=== PATIENT | male | born 1935 | race Hispanic/Latino ===

== ENCOUNTER → 2017-10-02 | Outpatient (CLI) | payer MEDICARE ==
[~2017-10-02] VITALS: Ht 167.6 cm; Wt 60.6 kg
[~2017-10-02] MED LIST: AMLO1CAP11 PO; ASPI-555 PO; ATOR40TA71 PO; CEFUROXIME SODIUM 1.5 GM VIAL IVP ONE; METF10004 PO; METO25TA6 PO; TAMS0.4C32 PO
[2017-10-02 11:50] VITALS: BP 148/64
[2017-10-02 11:55] LABS: BASOPHILS % (AUTO) 1.4 % (0.0-5.0); EOSINOPHILS % (AUTO) 11.9 % (0.0-8.0); HEMATOCRIT 32.5 % (42-54); LYMPHOCYTES % (AUTO) 21.1 % (21.0-51.0); MEAN CORPUSCULAR HEMOGLOBIN 29.6 pg (27.0-33.0); MEAN CORPUSCULAR HGB CONC 34.9 g/dL (32.0-36.0); MEAN CORPUSCULAR VOLUME 84.9 fL (79-99); MONOCYTES % (AUTO) 9.2 % (3.0-13.0); NEUTROPHILS % (AUTO) 56.4 % (40.0-77.0); PLATELET COUNT (AUTO) 145 K/uL (130-400); RED BLOOD CELL COUNT(AUTO) 3.83 MIL/uL (4.50-6.20); RED CELL DISTRIBUTION WIDTH 14.7 % (11.0-15.5); WHITE BLOOD COUNT (AUTO) 7.6 K/uL (4.8-10.8)
[2017-10-02 12:00] LABS: HEMOGLOBIN A1C 5.5 % (4.0-6.0)
[2017-10-02 12:10] LABS: ALBUMIN 3.9 g/dL (3.5-5.0); BILIRUBIN,TOTAL 0.7 mg/dL (0.2-1.0); CREATININE 1.3 mg/dL (0.5-1.5); POTASSIUM 5.1 mmol/L (3.5-5.1); TOTAL PROTEIN, SERUM 7.9 g/dL (6.0-8.3)
[2017-10-02 12:12] LABS: INR 0.98 (0.85-1.15); PARTIAL THROMBOPLASTIN TIME 26.6 SEC (26.3-35.5); PROTHROMBIN TIME 10.3 SEC (9.6-11.6)
== END | disposition home or self-care (01) ==
LOC: DAH 10:00 → EDSEX 11:45 → EDSTATUS 11:45
PROVIDERS: ATTEND Thoracic Surgery (Cardiothoracic Vascular Surgery)
DX: Z01.818 Encounter for other preprocedural examination (principal); I35.0 Nonrheumatic aortic (valve) stenosis
CPT/HCPCS: 36415; 71046; 80053; 83036; 85025; 85610; 85730; 86850; 86900; 86901; 86922; 93005; 94010

== ENCOUNTER 2017-10-15 11:45 | Inpatient (IN) | payer MEDICARE ==
[~2017-10-15] VITALS: Ht 167.6 cm; Wt 70.3 kg
[~2017-10-15 11:45] MED LIST changes: -CEFUROXIME SODIUM 1.5 GM VIAL IVP ONE
[2017-10-15 15:35] VITALS: BP 183/56
[2017-10-15 15:35] LABS: BASOPHILS % (AUTO) 0.8 % (0.0-5.0); EOSINOPHILS % (AUTO) 12.8 % (0.0-8.0); LYMPHOCYTES % (AUTO) 20.1 % (21.0-51.0); MEAN CORPUSCULAR HEMOGLOBIN 29.9 pg (27.0-33.0); MEAN CORPUSCULAR HGB CONC 34.8 g/dL (32.0-36.0); MEAN CORPUSCULAR VOLUME 85.8 fL (79-99); NEUTROPHILS % (AUTO) 58.3 % (40.0-77.0); PLATELET COUNT (AUTO) 143 K/uL (130-400); RED BLOOD CELL COUNT(AUTO) 3.61 MIL/uL (4.50-6.20); RED CELL DISTRIBUTION WIDTH 14.5 % (11.0-15.5); WHITE BLOOD COUNT (AUTO) 9.1 K/uL (4.8-10.8)
[2017-10-15 15:45] LABS: INR 0.96 (0.85-1.15); PARTIAL THROMBOPLASTIN TIME 26.6 SEC (26.3-35.5); PROTHROMBIN TIME 10.1 SEC (9.6-11.6)
[2017-10-15 15:49] LABS: ALBUMIN 3.9 g/dL (3.5-5.0); BILIRUBIN,TOTAL 0.6 mg/dL (0.2-1.0); CREATININE 1.5 mg/dL (0.5-1.5); TOTAL PROTEIN, SERUM 7.9 g/dL (6.0-8.3)
[2017-10-15 15:50] LABS: HEMOGLOBIN A1C 5.8 % (4.0-6.0)
[2017-10-16] MEDS ORDERED: CEFUROXIME SODIUM 1.5 GM VIAL IVP SCH (07:00)
[2017-10-16 12:50] VITALS: BP 171/61
[2017-10-16] MEDS ORDERED: SODIUM CHLORIDE 0.9% 1000ML 1,000 ML IV ONE (12:52)
[2017-10-16 17:50] VITALS: BP 158/56
[2017-10-16 19:13] VITALS: BP 135/53
[2017-10-16 23:48] VITALS: BP 167/56
[2017-10-17] VITALS (16 sets, daily range): BP systolic 115–168; BP diastolic 29–158
[2017-10-17 04:47] LABS: CREATININE 1.2 mg/dL (0.5-1.5); HEMATOCRIT 30.7 % (42-54); MEAN CORPUSCULAR HEMOGLOBIN 29.6 pg (27.0-33.0); MEAN CORPUSCULAR VOLUME 84.5 fL (79-99); PLATELET COUNT (AUTO) 144 K/uL (130-400); POTASSIUM 4.2 mmol/L (3.5-5.1); RED BLOOD CELL COUNT(AUTO) 3.63 MIL/uL (4.50-6.20); RED CELL DISTRIBUTION WIDTH 14.3 % (11.0-15.5); WHITE BLOOD COUNT (AUTO) 7.9 K/uL (4.8-10.8)
[2017-10-17] MEDS ORDERED: SODIUM CHLORIDE 0.9% 1000ML 1,000 ML IV ONE ×2 (06:51→10:17)
[2017-10-17] MEDS: CEFUROXIME SODIUM 1.5 GM VIAL IVP SCH ×3 (06:55→18:34)
[2017-10-17] MEDS ORDERED: BACITRACIN 50,000 UNIT VIAL ONE (07:13)
[2017-10-17] MEDS ORDERED: ROCURONIUM BROMIDE 10MG/1ML 5ML VL ONE ×2 (07:25→07:50)
[2017-10-17] MEDS ORDERED: NITROGLYCERIN 50 MG/D5% WATER 1 BOT ONE (07:26)
[2017-10-17] MEDS ORDERED: DELNIDO FORMULA 2 BAG IV ONE (07:30)
[2017-10-17] MEDS ORDERED: THROMBIN-JMI 5000 UNIT/VIAL TP ONE (07:30)
[2017-10-17] MEDS ORDERED: NOREPINEPHRINE BITARTRATE 1 MG/1 ML ML IV ONE ×3 (07:36→10:32)
[2017-10-17] MEDS ORDERED: MILRINONE-D5W 20 MG/100 ML 0 ML IV ONE (08:08)
[2017-10-17] MEDS ORDERED: HEPARIN SODIUM 1000UNIT/ML 10ML VIAL ONE (08:08)
[2017-10-17] MEDS ORDERED: NEOSTIGMINE 5MG/5ML SYR IV ONE (08:08)
[2017-10-17] MEDS ORDERED: EPINEPHRINE 1 MG/ML AMPULE ONE (08:08)
[2017-10-17] MEDS ORDERED: LIDOCAINE PF 2% 5ML ABBOJECT ONE (08:08)
[2017-10-17] MEDS ORDERED: PROTAMINE SULFATE 10 MG/ML 25ML VIAL IV ONE (08:08)
[2017-10-17] MEDS ORDERED: AMINOCAPROIC ACID 250 MG/ML 20 ML VIAL IV ONE ×2 (08:08→12:00)
[2017-10-17] MEDS ORDERED: GLYCOPYRROLATE 0.2 MG/ML 5 ML VIAL ONE (08:08)
[2017-10-17] MEDS ORDERED: ESMOLOL HCL 10 MG/ML 10 ML VIAL ONE (08:08)
[2017-10-17] MEDS ORDERED: AMIODARONE HCL 900MG/18ML IV ONE (08:08)
[2017-10-17] MEDS ORDERED: MIDAZOLAM HCL 1 MG/ML 5ML VIAL ONE (08:09)
[2017-10-17] MEDS ORDERED: PROPOFOL 10 MG/ML 20ML VIAL IV ONE (08:09)
[2017-10-17 08:29] LABS: ABG BASE EXCESS -3.7 mmol/L (-2.0-3.0); ABG HCO3 20.1 mmol/L (21.0-28.0); ABG OXYGEN SATURATION 99.1 % (95.0-99.0); ABG PCO2 32 mmHg (35-48)
[2017-10-17] MEDS ORDERED: FAMOTIDINE/PF 20 MG/2 ML VIAL IV SCH (09:00)
[2017-10-17] MEDS ORDERED: FENTANYL CITRATE PF 50 MCG/1 ML 5ML AMP IV ONE ×2 (09:26)
[2017-10-17 10:15] LABS: ABG HCO3 15.2 mmol/L (21.0-28.0); ABG OXYGEN SATURATION 98.8 % (95.0-99.0); ABG PCO2 35 mmHg (35-48)
[2017-10-17 10:41] LABS: ABG BASE EXCESS -3.1 mmol/L (-2.0-3.0); ABG HCO3 21.8 mmol/L (21.0-28.0); ABG OXYGEN SATURATION 98.3 % (95.0-99.0); ABG PCO2 38 mmHg (35-48)
[2017-10-17 11:06] LABS: ABG BASE EXCESS -3.9 mmol/L (-2.0-3.0); ABG HCO3 21.2 mmol/L (21.0-28.0); ABG OXYGEN SATURATION 98.3 % (95.0-99.0); ABG PCO2 38 mmHg (35-48)
[2017-10-17] MEDS ORDERED: SODIUM BICARB 50MEQ 50ML VIAL ONE ×3 (11:07→16:50)
[2017-10-17] MEDS ORDERED: SODIUM CHLORIDE 0.9% 500ML 500 ML IV SCH (11:28)
[2017-10-17] MEDS ORDERED: INSULIN REGULAR, HUMAN 3ML 100 UNIT in SODIUM CHLORIDE 0.9% 99 ML IV SCH ×2 (11:30)
[2017-10-17] MEDS ORDERED: SODIUM CHLORIDE 0.9% 250 ML IV PRN (11:30)
[2017-10-17] MEDS ORDERED: SODIUM BICARB 8.4% 50ML SYRINGE IV PRN (11:30)
[2017-10-17] MEDS ORDERED: AMINOCAPROIC ACID 15,000 MG in SODIUM CHLORIDE 0.9% 250 ML IV SCH (11:30)
[2017-10-17] MEDS ORDERED: NICARDIPINE HCL 100 MG in SODIUM CHLORIDE 0.9% 100 ML IV PRN (11:30)
[2017-10-17] MEDS ORDERED: POTASSIUM PHOS 15 mMOL+NS250ML 250 ML IV PRN (11:30)
[2017-10-17] MEDS ORDERED: HYDROCODONE/ACETAMINOPHEN 5/325 MG TAB PO PRN ×2 (11:30)
[2017-10-17] MEDS ORDERED: DEXTROSE 50%-WATER 50 ML DISP.SYRIN IV PRN (11:30)
[2017-10-17] MEDS ORDERED: MORPHINE SULFATE 4 MG/1ML SYG IV PRN (11:30)
[2017-10-17] MEDS ORDERED: SODIUM CHLORIDE 0.9% 1000ML 1,000 ML IV SCH (11:30)
[2017-10-17] MEDS ORDERED: NOREPINEPHRINE 4MG/NS 250ML 250 ML IV PRN (11:30)
[2017-10-17] MEDS ORDERED: ACETAMINOPHEN 650 MG SUPPOSITORY RC PRN (11:30)
[2017-10-17] MEDS ORDERED: ALBUMIN (HUMAN) 5% 250 ML IV PRN (11:30)
[2017-10-17] MEDS ORDERED: MAGNESIUM 2GM PREMIX 50ML 50 ML IV PRN (11:30)
[2017-10-17] MEDS ORDERED: EPINEPHRINE 2 MG in SODIUM CHLORIDE 0.9% 250 ML IV PRN (11:30)
[2017-10-17] MEDS ORDERED: MORPHINE SULFATE 2 MG/ML 1ML SYG IV PRN (11:30)
[2017-10-17] MEDS ORDERED: GLUCAGON 1MG KIT 1 MG ML IM PRN (11:30)
[2017-10-17] MEDS ORDERED: CALCIUM GLUCONATE 1 GM in SODIUM CHLORIDE 0.9% 50 ML IV PRN (11:30)
[2017-10-17] MEDS ORDERED: ONDANSETRON HCL 4 MG/2 ML VIAL IV PRN (11:30)
[2017-10-17] MEDS ORDERED: PROPOFOL 1000 MG/100 ML 100 ML IV PRN (11:30)
[2017-10-17] MEDS ORDERED: SODIUM CHLORIDE 0.9% 10 ML VIAL IVP PRN (11:30)
[2017-10-17] MEDS ORDERED: ATROPINE SULFATE 0.1 MG/ML 10 ML SYG IVP ONE (11:33)
[2017-10-17] MEDS ORDERED: CALCIUM CHLORIDE 100 MG/ML 10 ML SYG IVP ONE (12:00)
[2017-10-17] MEDS ORDERED: MANNITOL 25% 50ML VIAL IV ONE (12:00)
[2017-10-17] MEDS ORDERED: ALBUMIN (HUMAN) 25% 50 ML IV ONE (12:00)
[2017-10-17] MEDS ORDERED: SODIUM BICARB 8.4% 50ML SYRINGE IVP ONE (12:00)
[2017-10-17] MEDS ORDERED: HEPARIN SODIUM 1000UNIT/ML 10ML VIAL IV ONE (12:00)
[2017-10-17 12:14] LABS: ABG BASE EXCESS -9.7 mmol/L (-2.0-3.0); ABG HCO3 16.4 mmol/L (21.0-28.0); ABG OXYGEN SATURATION 98.7 % (95.0-99.0); ABG PCO2 37 mmHg (35-48)
[2017-10-17] MEDS ORDERED: OCTYL 2-CYANOACRYLATE 1 EACH TP ONE (12:18)
[2017-10-17] MEDS: AMBU PUMP 1 EACH EACH MISC SCH ×2 (12:35→13:42)
[2017-10-17 13:31] LABS: HEMATOCRIT 35.3 % (42-54); MEAN CORPUSCULAR HEMOGLOBIN 29.4 pg (27.0-33.0); MEAN CORPUSCULAR HGB CONC 34.5 g/dL (32.0-36.0); MEAN CORPUSCULAR VOLUME 85.1 fL (79-99); PLATELET COUNT (AUTO) 58 K/uL (130-400); RED BLOOD CELL COUNT(AUTO) 4.15 MIL/uL (4.50-6.20); WHITE BLOOD COUNT (AUTO) 26.5 K/uL (4.8-10.8)
[2017-10-17 13:33] LABS: ABG BASE EXCESS -3.4 mmol/L (-2.0-3.0); ABG HCO3 21.7 mmol/L (21.0-28.0); ABG OXYGEN SATURATION 98.5 % (95.0-99.0); ABG PCO2 40 mmHg (35-48)
[2017-10-17] MEDS: POTASSIUM CHLORIDE 20MEQ/100ML 100 ML IV PRN ×4 (13:40→23:27)
[2017-10-17 13:43] LABS: CREATININE 1.5 mg/dL (0.5-1.5); MAGNESIUM 2.5 mg/dL (1.80-2.40); PHOSPHORUS 3.6 mg/dL (2.5-4.9); POTASSIUM 3.5 mmol/L (3.5-5.1)
[2017-10-17 16:20] LABS: ABG BASE EXCESS -4.2 mmol/L (-2.0-3.0); ABG HCO3 20.6 mmol/L (21.0-28.0); ABG PCO2 37 mmHg (35-48)
[2017-10-17] MEDS ORDERED: EPINEPHRINE 8 MG in SODIUM CHLORIDE 0.9% 250 ML IV PRN (17:45)
[2017-10-17] MEDS ORDERED: CEFUROXIME SODIUM 1.5 GM VIAL ONE (17:55)
[2017-10-17] MEDS: SODIUM CHLORIDE 0.9% 10 ML VIAL IVP SCH (18:34)
[2017-10-17] MEDS ORDERED: CEFUROXIME 1.5GM+NS 100ML 100 ML IV SCH (19:30)
[2017-10-17 22:55] LABS: ABG HCO3 23.1 mmol/L (21.0-28.0); ABG OXYGEN SATURATION 98.6 % (95.0-99.0); ABG PCO2 37 mmHg (35-48)
[2017-10-18] VITALS (24 sets, daily range): BP systolic 104–170; BP diastolic 42–77
[2017-10-18 00:51] LABS: ABG BASE EXCESS 3.2 mmol/L (-2.0-3.0); ABG HCO3 28.2 mmol/L (21.0-28.0); ABG OXYGEN SATURATION 98.2 % (95.0-99.0); ABG PCO2 45 mmHg (35-48)
[2017-10-18] MEDS: NITROGLYCERIN 50 MG/D5% WATER 250 BOT IV SCH ×2 (03:53→18:49)
[2017-10-18 04:01] LABS: HEMATOCRIT 29.9 % (42-54); MEAN CORPUSCULAR HEMOGLOBIN 30.7 pg (27.0-33.0); MEAN CORPUSCULAR HGB CONC 36.5 g/dL (32.0-36.0); MEAN CORPUSCULAR VOLUME 84.1 fL (79-99); RED BLOOD CELL COUNT(AUTO) 3.55 MIL/uL (4.50-6.20); RED CELL DISTRIBUTION WIDTH 14.2 % (11.0-15.5); WHITE BLOOD COUNT (AUTO) 15.9 K/uL (4.8-10.8)
[2017-10-18 04:12] LABS: CREATININE 1.6 mg/dL (0.5-1.5); MAGNESIUM 2.1 mg/dL (1.80-2.40); PHOSPHORUS 2.2 mg/dL (2.5-4.9); POTASSIUM 4.3 mmol/L (3.5-5.1)
[2017-10-18 04:46] LABS: PLATELET COUNT (AUTO) 48 K/uL (130-400)
[2017-10-18] MEDS: CEFUROXIME SODIUM 1.5 GM VIAL IVP SCH ×2 (07:03→18:45)
[2017-10-18] MEDS: SODIUM CHLORIDE 0.9% 10 ML VIAL IVP SCH ×2 (07:03→18:45)
[2017-10-18] MEDS: PANTOPRAZOLE SODIUM 40 MG TABLET.DR PO SCH (08:39)
[2017-10-18] MEDS: ATORVASTATIN CALCIUM 40 MG TABLET PO SCH (08:39)
[2017-10-18] MEDS ORDERED: ASPIRIN 81MG TAB.CHEW PO SCH (09:00)
[2017-10-18] MEDS: AMBU PUMP 1 EACH EACH MISC SCH (10:15)
[2017-10-18] MEDS ORDERED: METHYLPREDNISOLONE SOD SUCC 125MG/2ML VIAL IVP SCH (13:15)
[2017-10-18] MEDS ORDERED: FUROSEMIDE 10 MG/ML 2ML VIAL IV SCH (13:15)
[2017-10-19] VITALS (24 sets, daily range): BP systolic 129–198; BP diastolic 42–125
[2017-10-19 04:45] LABS: BASOPHILS % (AUTO) 0.1 % (0.0-5.0); HEMATOCRIT 24.6 % (42-54); LYMPHOCYTES % (AUTO) 4.3 % (21.0-51.0); MEAN CORPUSCULAR HEMOGLOBIN 29.1 pg (27.0-33.0); MEAN CORPUSCULAR HGB CONC 34.2 g/dL (32.0-36.0); MEAN CORPUSCULAR VOLUME 85.1 fL (79-99); MONOCYTES % (AUTO) 7.7 % (3.0-13.0); NEUTROPHILS % (AUTO) 87.9 % (40.0-77.0); PLATELET COUNT (AUTO) 29 K/uL (130-400); RED BLOOD CELL COUNT(AUTO) 2.89 MIL/uL (4.50-6.20); RED CELL DISTRIBUTION WIDTH 14.4 % (11.0-15.5); WHITE BLOOD COUNT (AUTO) 19.2 K/uL (4.8-10.8)
[2017-10-19 04:59] LABS: ALBUMIN 2.8 g/dL (3.5-5.0); BILIRUBIN,TOTAL 0.9 mg/dL (0.2-1.0); CREATININE 1.6 mg/dL (0.5-1.5); TOTAL PROTEIN, SERUM 5.7 g/dL (6.0-8.3)
[2017-10-19] MEDS: NITROGLYCERIN 50 MG/D5% WATER 250 BOT IV SCH ×2 (05:08→12:40)
[2017-10-19] MEDS: POTASSIUM CHLORIDE 20MEQ/100ML 100 ML IV PRN (05:41)
[2017-10-19] MEDS: PANTOPRAZOLE SODIUM 40 MG TABLET.DR PO SCH (08:20)
[2017-10-19] MEDS: ATORVASTATIN CALCIUM 40 MG TABLET PO SCH (08:20)
[2017-10-19] MEDS: INSULIN HUMULIN R 100 UNIT/ML 3ML SQ SCH ×3 (11:18→21:00)
[2017-10-19] MEDS ORDERED: HYDRALAZINE HCL 20 MG/ML VIAL IM PRN (20:00)
[2017-10-19] MEDS ORDERED: HYDRALAZINE HCL 20 MG/ML VIAL ONE (20:20)
[2017-10-20] VITALS (25 sets, daily range): BP systolic 131–199; BP diastolic 34–79
[2017-10-20 04:23] LABS: CREATININE 1.6 mg/dL (0.5-1.5); POTASSIUM 4.1 mmol/L (3.5-5.1)
[2017-10-20 04:28] LABS: BASOPHILS % (AUTO) 0.2 % (0.0-5.0); EOSINOPHILS % (AUTO) 0.2 % (0.0-8.0); HEMATOCRIT 22.6 % (42-54); MEAN CORPUSCULAR HEMOGLOBIN 29.9 pg (27.0-33.0); MEAN CORPUSCULAR VOLUME 85.6 fL (79-99); MONOCYTES % (AUTO) 7.6 % (3.0-13.0); RED BLOOD CELL COUNT(AUTO) 2.64 MIL/uL (4.50-6.20); RED CELL DISTRIBUTION WIDTH 14.5 % (11.0-15.5); WHITE BLOOD COUNT (AUTO) 16.7 K/uL (4.8-10.8)
[2017-10-20 05:09] LABS: PLATELET COUNT (AUTO) 48 K/uL (130-400)
[2017-10-20] MEDS: INSULIN HUMULIN R 100 UNIT/ML 3ML SQ SCH ×4 (06:56→21:00)
[2017-10-20] MEDS: HYDRALAZINE HCL 20 MG/ML VIAL IV PRN ×3 (06:59→20:09)
[2017-10-20] MEDS: ATORVASTATIN CALCIUM 40 MG TABLET PO SCH (08:53)
[2017-10-20] MEDS: PANTOPRAZOLE SODIUM 40 MG TABLET.DR PO SCH (08:53)
[2017-10-20 09:02] LABS: INR 0.96 (0.85-1.15); PARTIAL THROMBOPLASTIN TIME 27.8 SEC (26.3-35.5); PROTHROMBIN TIME 10.1 SEC (9.6-11.6)
[2017-10-20] MEDS: AMLODIPINE BESYLATE 5 MG TAB PO SCH ×2 (10:21→20:09)
[2017-10-20] MEDS ORDERED: ISOSORBIDE MONO 30MG TAB SR PO SCH (10:30)
[2017-10-20] MEDS: HYDRALAZINE HCL 25 MG TABLET PO SCH ×2 (13:28→20:09)
[2017-10-20] MEDS ORDERED: METOPROLOL TARTRATE 1 MG/ML 5ML VIAL IV PRN (17:30)
[2017-10-20] MEDS ORDERED: DIGOXIN 250 MCG/ML 2ML AMP IV PRN (19:00)
[2017-10-20] MEDS ORDERED: FUROSEMIDE 40 MG TABLET PO SCH (19:45)
[2017-10-20] MEDS ORDERED: TAMSULOSIN HCL 0.4 MG CAP.ER.24H PO ONE (20:12)
[2017-10-20] MEDS: TAMSULOSIN HCL 0.4 MG CAP.ER.24H PO SCH (20:13)
[2017-10-20] MEDS ORDERED: METOPROLOL TARTRATE 25 MG TAB PO SCH (21:00)
[2017-10-20 23:51] LABS: HEMATOCRIT 31.1 % (42-54); MEAN CORPUSCULAR HEMOGLOBIN 28.7 pg (27.0-33.0); MEAN CORPUSCULAR HGB CONC 33.9 g/dL (32.0-36.0); MEAN CORPUSCULAR VOLUME 84.7 fL (79-99); PLATELET COUNT (AUTO) 25 K/uL (130-400); RED BLOOD CELL COUNT(AUTO) 3.68 MIL/uL (4.50-6.20); RED CELL DISTRIBUTION WIDTH 15.5 % (11.0-15.5); WHITE BLOOD COUNT (AUTO) 15.1 K/uL (4.8-10.8)
[2017-10-20 23:57] LABS: BILIRUBIN,TOTAL 0.9 mg/dL (0.2-1.0); CREATININE 1.4 mg/dL (0.5-1.5); MAGNESIUM 2.2 mg/dL (1.80-2.40); POTASSIUM 3.7 mmol/L (3.5-5.1); TOTAL PROTEIN, SERUM 6.1 g/dL (6.0-8.3)
[2017-10-21] VITALS (21 sets, daily range): BP systolic 119–171; BP diastolic 43–111
[2017-10-21 00:27] LABS: BAND NEUTROPHILS % (MANUAL) 2 % (0-2); LYMPHOCYTES % (MANUAL) 6 % (22-44); MONOCYTES % (MANUAL) 4 % (2-9); SEGMENTED NEUTROPHILS % 88 % (40-70)
[2017-10-21 00:28] LABS: MAN.DIFF COMMENT-IMPRESSION MANUAL DIFFERENTIAL; PLATELET MORPHOLOGY COMMENT MARKED DECREASED
[2017-10-21] MEDS ORDERED: DIGOXIN 250 MCG/ML 2ML AMP ONE ×2 (01:12→03:23)
[2017-10-21] MEDS ORDERED: METOPROLOL TARTRATE 1 MG/ML 5ML VIAL IV ONE (05:18)
[2017-10-21 06:41] LABS: CREATININE 1.4 mg/dL (0.5-1.5); POTASSIUM 3.6 mmol/L (3.5-5.1)
[2017-10-21 06:48] LABS: BASOPHILS % (AUTO) 0.3 % (0.0-5.0); EOSINOPHILS % (AUTO) 0.9 % (0.0-8.0); HEMATOCRIT 29.3 % (42-54); LYMPHOCYTES % (AUTO) 5.6 % (21.0-51.0); MEAN CORPUSCULAR HEMOGLOBIN 29.7 pg (27.0-33.0); MEAN CORPUSCULAR HGB CONC 35.1 g/dL (32.0-36.0); MEAN CORPUSCULAR VOLUME 84.5 fL (79-99); MONOCYTES % (AUTO) 6.2 % (3.0-13.0); NUCLEATED RED BLOOD CELLS 0.1 % (0.0-0.19); PLATELET COUNT (AUTO) 28 K/uL (130-400); RED BLOOD CELL COUNT(AUTO) 3.47 MIL/uL (4.50-6.20); RED CELL DISTRIBUTION WIDTH 15.4 % (11.0-15.5); WHITE BLOOD COUNT (AUTO) 12.6 K/uL (4.8-10.8)
[2017-10-21] MEDS: INSULIN HUMULIN R 100 UNIT/ML 3ML SQ SCH ×4 (06:49→20:47)
[2017-10-21] MEDS: ATORVASTATIN CALCIUM 40 MG TABLET PO SCH (08:26)
[2017-10-21] MEDS: HYDRALAZINE HCL 25 MG TABLET PO SCH ×3 (08:26→20:47)
[2017-10-21] MEDS: TAMSULOSIN HCL 0.4 MG CAP.ER.24H PO SCH (08:26)
[2017-10-21] MEDS: ISOSORBIDE MONO 30MG TAB SR PO SCH (08:27)
[2017-10-21] MEDS: FUROSEMIDE 20 MG TABLET PO SCH ×2 (08:27→17:45)
[2017-10-21] MEDS: PANTOPRAZOLE SODIUM 40 MG TABLET.DR PO SCH (08:27)
[2017-10-21] MEDS: AMLODIPINE BESYLATE 5 MG TAB PO SCH ×2 (08:27→20:47)
[2017-10-21] MEDS ORDERED: POTASSIUM CHLORIDE 10% ELIXIR 20 MEQ/15 ML UDCUP PO PRN (08:30)
[2017-10-21] MEDS: POTASSIUM CHLORIDE 20 MEQ ERTAB PO PRN ×2 (08:35→10:13)
[2017-10-21] MEDS ORDERED: CEFAZOLIN 1GM / D5W 50ML 50 ML IV PRN (15:15)
[2017-10-21] MEDS: ACETAMINOPHEN 325 MG TAB PO PRN (20:46)
[2017-10-22] VITALS (22 sets, daily range): BP systolic 82–173; BP diastolic 34–72
[2017-10-22 04:49] LABS: BASOPHILS % (AUTO) 0.4 % (0.0-5.0); EOSINOPHILS % (AUTO) 4.3 % (0.0-8.0); HEMATOCRIT 27.8 % (42-54); LYMPHOCYTES % (AUTO) 7.5 % (21.0-51.0); MEAN CORPUSCULAR HEMOGLOBIN 30.4 pg (27.0-33.0); MEAN CORPUSCULAR HGB CONC 35.9 g/dL (32.0-36.0); MEAN CORPUSCULAR VOLUME 84.8 fL (79-99); MONOCYTES % (AUTO) 9.4 % (3.0-13.0); NEUTROPHILS % (AUTO) 78.4 % (40.0-77.0); PLATELET COUNT (AUTO) 70 K/uL (130-400); RED BLOOD CELL COUNT(AUTO) 3.27 MIL/uL (4.50-6.20); RED CELL DISTRIBUTION WIDTH 14.9 % (11.0-15.5); WHITE BLOOD COUNT (AUTO) 10.4 K/uL (4.8-10.8)
[2017-10-22 05:03] LABS: CREATININE 1.3 mg/dL (0.5-1.5); POTASSIUM 3.3 mmol/L (3.5-5.1)
[2017-10-22 05:12] LABS: B-TYPE NATRIURETIC PEPTIDE 481 pg/mL (0-100)
[2017-10-22 05:27] LABS: INR 1.01 (0.85-1.15); PARTIAL THROMBOPLASTIN TIME 26.4 SEC (26.3-35.5); PROTHROMBIN TIME 10.6 SEC (9.6-11.6)
[2017-10-22] MEDS: POTASSIUM CHLORIDE 20MEQ/100ML 100 ML IV PRN ×2 (05:38→13:12)
[2017-10-22] MEDS: INSULIN HUMULIN R 100 UNIT/ML 3ML SQ SCH ×4 (06:37→20:56)
[2017-10-22] MEDS: ISOSORBIDE MONO 30MG TAB SR PO SCH (08:28)
[2017-10-22] MEDS: FUROSEMIDE 20 MG TABLET PO SCH ×2 (08:28→16:47)
[2017-10-22] MEDS: ATORVASTATIN CALCIUM 40 MG TABLET PO SCH (08:28)
[2017-10-22] MEDS: PANTOPRAZOLE SODIUM 40 MG TABLET.DR PO SCH (08:28)
[2017-10-22] MEDS: HYDRALAZINE HCL 25 MG TABLET PO SCH ×3 (08:29→20:57)
[2017-10-22] MEDS: AMLODIPINE BESYLATE 5 MG TAB PO SCH ×2 (08:29→20:57)
[2017-10-22] MEDS: TAMSULOSIN HCL 0.4 MG CAP.ER.24H PO SCH (08:29)
[2017-10-22] MEDS: ACETAMINOPHEN 325 MG TAB PO PRN (08:32)
[2017-10-22 10:38] LABS: POTASSIUM 3.6 mmol/L (3.5-5.1)
[2017-10-22 14:17] LABS: APPEARANCE,URINE Clear (CLEAR); BILIRUBIN,URINE Negative (NEGATIVE); COLOR,URINE Yellow (YELLOW); GLUCOSE, URINE (UA) Negative (NEGATIVE); KETONES,URINE 15 mg/dL (NEGATIVE); LEUKOCYTE ESTERASE ,URINE Negative (NEGATIVE); NITRATE,URINE Negative (NEGATIVE); OCCULT BLOOD,URINE Trace (NEGATIVE); PH,URINE 5.5 (5.0-8.0); PROTEIN,URINE POS 2+ (NEGATIVE)
[2017-10-22] MEDS ORDERED: LIDOCAINE HCL 1% 20 ML VIAL ONE ×2 (14:17→14:21)
[2017-10-22] MEDS ORDERED: BUPIVACAINE/PF 0.25% 30ML VIAL IJ ONE (14:18)
[2017-10-22] MEDS ORDERED: MEPERIDINE-PF 25 MG/ML SYG ONE ×2 (14:18→14:37)
[2017-10-22] MEDS ORDERED: MIDAZOLAM HCL 1 MG/ML 2ML VIAL ONE ×2 (14:18→14:37)
[2017-10-22] MEDS ORDERED: VANCOMYCIN 1GM+NS 250ML 500 ML IV ONE (14:19)
[2017-10-22 14:24] LABS: BACTERIA,URINE Few /HPF (None Seen); SQUAMOUS EPITHELIAL CELL,UR Rare /LPF (0-2); WBC,URINE 0-1 /HPF (0-1)
[2017-10-22] MEDS ORDERED: AMIODARONE HCL 900MG/18ML IV ONE (15:05)
[2017-10-22] MEDS ORDERED: ACETAMINOPHEN 325 MG TAB PO PRN (15:45)
[2017-10-22] MEDS ORDERED: ACETAMINOPHEN-CODEINE 300/30MG TAB PO PRN ×2 (15:45)
[2017-10-22] MEDS ORDERED: CEFAZOLIN SODIUM 1 GM VIAL IVP SCH (16:00)
[2017-10-22] MEDS ORDERED: AMIODARONE HCL 900 MG in DEXTROSE 5%-WATER 500 ML IV SCH (16:30)
[2017-10-22] MEDS: METOPROLOL TARTRATE 25 MG TAB PO SCH ×3 (16:46→21:01)
[2017-10-23 03:13] VITALS: BP 154/57
[2017-10-23 04:01] LABS: HEMATOCRIT 28.6 % (42-54); MEAN CORPUSCULAR HEMOGLOBIN 29.5 pg (27.0-33.0); MEAN CORPUSCULAR HGB CONC 34.9 g/dL (32.0-36.0); MEAN CORPUSCULAR VOLUME 84.5 fL (79-99); PLATELET COUNT (AUTO) 65 K/uL (130-400); RED BLOOD CELL COUNT(AUTO) 3.38 MIL/uL (4.50-6.20); RED CELL DISTRIBUTION WIDTH 14.8 % (11.0-15.5); WHITE BLOOD COUNT (AUTO) 11.4 K/uL (4.8-10.8)
[2017-10-23 04:16] LABS: CREATININE 1.6 mg/dL (0.5-1.5); MAGNESIUM 2.2 mg/dL (1.80-2.40); POTASSIUM 3.9 mmol/L (3.5-5.1)
[2017-10-23 04:18] LABS: B-TYPE NATRIURETIC PEPTIDE 582 pg/mL (0-100)
[2017-10-23] MEDS: INSULIN HUMULIN R 100 UNIT/ML 3ML SQ SCH ×4 (06:03→20:59)
[2017-10-23 07:00] VITALS: BP 165/65
[2017-10-23] MEDS: TAMSULOSIN HCL 0.4 MG CAP.ER.24H PO SCH (09:10)
[2017-10-23] MEDS: ISOSORBIDE MONO 30MG TAB SR PO SCH (09:11)
[2017-10-23] MEDS: HYDRALAZINE HCL 25 MG TABLET PO SCH ×3 (09:11→20:54)
[2017-10-23] MEDS: METOPROLOL TARTRATE 25 MG TAB PO SCH ×2 (09:11→20:54)
[2017-10-23] MEDS: PANTOPRAZOLE SODIUM 40 MG TABLET.DR PO SCH (09:11)
[2017-10-23] MEDS: ATORVASTATIN CALCIUM 40 MG TABLET PO SCH (09:11)
[2017-10-23] MEDS: FUROSEMIDE 20 MG TABLET PO SCH ×2 (09:11→16:20)
[2017-10-23] MEDS: AMLODIPINE BESYLATE 5 MG TAB PO SCH ×2 (09:11→20:55)
[2017-10-23 11:00] VITALS: BP 137/58
[2017-10-23] MEDS: AMIODARONE HCL 200 MG TABLET PO SCH (14:27)
[2017-10-23 16:00] VITALS: BP 131/45
[2017-10-23 19:11] VITALS: BP 146/43
[2017-10-23 23:49] VITALS: BP 137/57
[2017-10-24 03:50] VITALS: BP 147/45
[2017-10-24 04:01] LABS: HEMATOCRIT 26.6 % (42-54); MEAN CORPUSCULAR HEMOGLOBIN 30.3 pg (27.0-33.0); MEAN CORPUSCULAR HGB CONC 35.9 g/dL (32.0-36.0); MEAN CORPUSCULAR VOLUME 84.3 fL (79-99); PLATELET COUNT (AUTO) 56 K/uL (130-400); RED BLOOD CELL COUNT(AUTO) 3.15 MIL/uL (4.50-6.20); RED CELL DISTRIBUTION WIDTH 14.7 % (11.0-15.5); WHITE BLOOD COUNT (AUTO) 12.1 K/uL (4.8-10.8)
[2017-10-24 04:26] LABS: CREATININE 1.5 mg/dL (0.5-1.5); POTASSIUM 3.5 mmol/L (3.5-5.1)
[2017-10-24] MEDS: INSULIN HUMULIN R 100 UNIT/ML 3ML SQ SCH ×4 (05:50→21:40)
[2017-10-24] MEDS: POTASSIUM CHLORIDE 20 MEQ ERTAB PO PRN ×2 (05:51→08:39)
[2017-10-24 07:00] VITALS: BP 159/54
[2017-10-24] MEDS: AMIODARONE HCL 200 MG TABLET PO SCH (08:38)
[2017-10-24] MEDS: METOPROLOL TARTRATE 25 MG TAB PO SCH ×2 (08:38→21:38)
[2017-10-24] MEDS: ISOSORBIDE MONO 30MG TAB SR PO SCH (08:38)
[2017-10-24] MEDS: HYDRALAZINE HCL 25 MG TABLET PO SCH ×3 (08:38→21:38)
[2017-10-24] MEDS: AMLODIPINE BESYLATE 5 MG TAB PO SCH ×2 (08:38→21:38)
[2017-10-24] MEDS: FUROSEMIDE 20 MG TABLET PO SCH ×2 (08:38→16:50)
[2017-10-24] MEDS: ATORVASTATIN CALCIUM 40 MG TABLET PO SCH (08:38)
[2017-10-24] MEDS: TAMSULOSIN HCL 0.4 MG CAP.ER.24H PO SCH (08:39)
[2017-10-24] MEDS: PANTOPRAZOLE SODIUM 40 MG TABLET.DR PO SCH (08:39)
[2017-10-24 11:00] VITALS: BP 133/43
[2017-10-24 16:01] VITALS: BP 129/49
[2017-10-24 19:36] VITALS: BP 157/47
[2017-10-24 23:17] VITALS: BP 124/49
[2017-10-25 03:34] VITALS: BP 168/70
[2017-10-25] MEDS: HYDRALAZINE HCL 20 MG/ML VIAL IV PRN (03:37)
[2017-10-25 04:22] LABS: HEMATOCRIT 26.3 % (42-54); MEAN CORPUSCULAR HEMOGLOBIN 29.2 pg (27.0-33.0); MEAN CORPUSCULAR HGB CONC 35.2 g/dL (32.0-36.0); PLATELET COUNT (AUTO) 61 K/uL (130-400); RED BLOOD CELL COUNT(AUTO) 3.17 MIL/uL (4.50-6.20); WHITE BLOOD COUNT (AUTO) 11.9 K/uL (4.8-10.8)
[2017-10-25 04:32] LABS: INR 0.94 (0.85-1.15); PARTIAL THROMBOPLASTIN TIME 26.7 SEC (26.3-35.5); PROTHROMBIN TIME 9.9 SEC (9.6-11.6)
[2017-10-25 04:48] LABS: CREATININE 1.5 mg/dL (0.5-1.5); MAGNESIUM 2.1 mg/dL (1.80-2.40); PHOSPHORUS 2.4 mg/dL (2.5-4.9); POTASSIUM 3.3 mmol/L (3.5-5.1)
[2017-10-25] MEDS: POTASSIUM CHLORIDE 20 MEQ ERTAB PO PRN ×3 (06:07→11:26)
[2017-10-25] MEDS: INSULIN HUMULIN R 100 UNIT/ML 3ML SQ SCH ×3 (06:15→16:30)
[2017-10-25] MEDS ORDERED: POTASSIUM PHOS 15 mMOL+NS250ML 250 ML IV SCH (08:00)
[2017-10-25 08:13] VITALS: BP 167/60
[2017-10-25] MEDS: AMLODIPINE BESYLATE 5 MG TAB PO SCH (08:56)
[2017-10-25] MEDS: ATORVASTATIN CALCIUM 40 MG TABLET PO SCH (08:56)
[2017-10-25] MEDS: FUROSEMIDE 20 MG TABLET PO SCH ×2 (08:56→16:47)
[2017-10-25] MEDS: AMIODARONE HCL 200 MG TABLET PO SCH (08:56)
[2017-10-25] MEDS: TAMSULOSIN HCL 0.4 MG CAP.ER.24H PO SCH (08:56)
[2017-10-25] MEDS: ISOSORBIDE MONO 30MG TAB SR PO SCH (08:56)
[2017-10-25] MEDS: METOPROLOL TARTRATE 25 MG TAB PO SCH (08:57)
[2017-10-25] MEDS: PANTOPRAZOLE SODIUM 40 MG TABLET.DR PO SCH (08:57)
[2017-10-25] MEDS: HYDRALAZINE HCL 25 MG TABLET PO SCH ×2 (09:01→14:57)
[2017-10-25 11:56] VITALS: BP 122/59
[2017-10-25 16:00] VITALS: BP 123/58
== END 2017-10-25 18:50 | disposition home or self-care (01) | DRG 220 ==
LOC: EDSTATUS 10-16 08:00 → DAHIP 10-16 12:03 → 2AH 10-16 17:43 → 2CV 10-17 08:03 → 2CH 10-18 04:57 → 2BH 10-19 18:42
PROVIDERS: ADMIT Internal Medicine; ATTEND Internal Medicine
PROC: 5A1221Z Performance of Cardiac Output, Continuous (ICD-10-PCS; 2017-10-17)
PROC: 30233R1 Transfusion of Nonautologous Platelets into Peripheral Vein, Percutaneous Approach (ICD-10-PCS; 2017-10-17)
PROC: 02RF08Z Replacement of Aortic Valve with Zooplastic Tissue, Open Approach (ICD-10-PCS; principal; 2017-10-17 07:30)
PROC: B24BZZ4 Ultrasonography of Heart with Aorta, Transesophageal (ICD-10-PCS; 2017-10-17 07:30)
PROC: 30233N1 Transfusion of Nonautologous Red Blood Cells into Peripheral Vein, Percutaneous Approach (ICD-10-PCS; 2017-10-20)
PROC: 30233N1 Transfusion of Nonautologous Red Blood Cells into Peripheral Vein, Percutaneous Approach (ICD-10-PCS; 2017-10-21)
PROC: 0JH606Z Insertion of Pacemaker, Dual Chamber into Chest Subcutaneous Tissue and Fascia, Open Approach (ICD-10-PCS; 2017-10-22)
PROC: 02H63JZ Insertion of Pacemaker Lead into Right Atrium, Percutaneous Approach (ICD-10-PCS; 2017-10-22)
PROC: 02HK3JZ Insertion of Pacemaker Lead into Right Ventricle, Percutaneous Approach (ICD-10-PCS; 2017-10-22)
PROC: 5A2204Z Restoration of Cardiac Rhythm, Single (ICD-10-PCS; 2017-10-22)
DX: I35.0 Nonrheumatic aortic (valve) stenosis (principal); I47.1 Supraventricular tachycardia; I44.2 Atrioventricular block, complete; E11.22 Type 2 diabetes mellitus with diabetic chronic kidney disease; D69.59 Other secondary thrombocytopenia; I27.20 Pulmonary hypertension, unspecified; I49.5 Sick sinus syndrome; R25.1 Tremor, unspecified; R30.0 Dysuria; R33.9 Retention of urine, unspecified; I65.21 Occlusion and stenosis of right carotid artery; I25.10 Atherosclerotic heart disease of native coronary artery without angina pectoris; N18.9 Chronic kidney disease, unspecified; I70.1 Atherosclerosis of renal artery; I12.9 Hypertensive chronic kidney disease with stage 1 through stage 4 chronic kidney disease, or unspecified chronic kidney disease; D63.8 Anemia in other chronic diseases classified elsewhere; E78.5 Hyperlipidemia, unspecified; Z95.1 Presence of aortocoronary bypass graft; Z90.49 Acquired absence of other specified parts of digestive tract; Z98.49 Cataract extraction status, unspecified eye; Z79.82 Long term (current) use of aspirin; Z79.899 Other long term (current) drug therapy
CPT/HCPCS: 33208; 36415; 36600; 71045; 71046; 76998; 80048; 80053; 81001; 82330; 82435; 82803; 82947; 82948; 83036; 83605; 83735; 83880; 84100; 84132; 84295; 85018; 85025; 85027; 85347; 85610; 85730; 86850; 86900; 86901; 86922; 87088; 88305; 88311; 93005; 93318; 94002; 94150; 97039; 99152; 99153; A4218; A7048; C1785; J0171; J0282; J0360; J0461; J0697; J1160; J1644; J1815; J1940; J2001; J2150; J2175; J2250; J2260; J2704; J2710; J2720; J2930; J3010; J3370; J3480; J3490; J7030; J7040; J7060; P9016; P9034; P9045; P9047